=== PATIENT | male | born 1990 | race Hispanic/Latino ===

== ENCOUNTER 2022-03-23 07:41 | Emergency (ER) | payer MEDICAID ==
[~2022-03-23] VITALS: Ht 175.3 cm; Wt 89.0 kg
[2022-03-23] MEDS ORDERED: REGLAN10 MG PO (10:34)
== END 2022-03-23 10:45 | disposition home or self-care (01) ==
LOC: ED 07:41
DX: R51.9 Headache, unspecified (principal)
CPT/HCPCS: 36415; 80053; 85025; 96374; 96375; 99284-25; J1200; J1790; J1885; J2405; J7030